=== PATIENT | female | born 1965 | race Caucasian/White ===

== ENCOUNTER 2017-04-23 16:22 | Emergency (ER) | payer OTHER ==
--- NOTE | 2017-04-23 17:27 | ED CLINICAL REPORT ---
Clinical Report - Physicians/Mid Levels [facility] [address] [place] [address] 04/23/2017 16:32 Patient: DIAZ SAM Time Seen: 16:51; initial patient contact, initial documentation, patient care assumed. Arrived- By private vehicle. Historian- patient. HISTORY OF PRESENT ILLNESS Chief Complaint: HEADACHE and MIGRAINE HEADACHE. Is still present. This started today. It was abrupt in onset and has been constant. It is described as similar to previous headaches and "pain". Located in the region of the left eye. No neck pain. Not located in the facial region. At its maximum, severity described as severe. When seen in the E.D., severity described as severe. The patient has had photophobia and nausea. She has had mild vomiting (x4 episodes). No bilious emesis, feculent emesis, blood-tinged emesis, coffee-grounds emesis or frankly bloody emesis. No unusually dark emesis. No preceding symptoms, blurred vision, numbness or weakness. No recent travel. Similar symptoms previously: Chronically, as bad. ( last headache was about a year ago). Recent medical care: Not recently seen/assessed. REVIEW OF SYSTEMS No fever, sinus pressure, ear pain, sore throat or head injury. No chest pain, difficulty breathing or abdominal pain. All systems otherwise negative, except as recorded above. PAST HISTORY See nurses notes. PROBLEMS: Migraine Headache. CVA - Cerebrovascular Accident. Meningitis. Hypercholesterolemia. Hypertension. Diabetes Mellitus Type 2. Hepatitis. --16:44 Florence Rainey R.N. ADDITIONAL SURGERIES: Appendectomy. Cardiac ablation. Knee Surgery. Neck Surgery. Tubal Ligation. --16:44 Florence Rainey R.N. SOCIAL HISTORY Light tobacco smoker. Occasional alcohol use. History of drug use: marijuana. No recent travel. Is a local resident. FAMILY HISTORY Negative. ADDITIONAL NOTES The nursing notes have been reviewed with agreement regarding the chief complaint, HPI, ROS, PMH and patient medications and allergies. PHYSICAL EXAM Vital Signs: 04/23/2017 16:40 BP: 153/70. HR: 58. RR: 18. O2 saturation: 99%. Temp: 98.2 F. Pain level now: 06/22. Have been reviewed as abnormal and appear to be correct. Blood pressure normal. Bradycardic. Respiratory rate normal. Temperature normal. Oxygen saturation normal. Appearance: Alert. No acute distress. Eyes: Pupils equal, round and reactive to light. Eyes normal inspection. ENT: Ears normal. Nose normal. Pharynx normal. Neck: Normal inspection. Neck supple. CVS: Normal heart rate and rhythm. Heart sounds normal. Pulses normal. Respiratory: No respiratory distress. Breath sounds normal. Back: Normal inspection. Skin: Skin warm and dry. Normal skin color. No rash. Normal skin turgor. Extremities: Extremities exhibit normal ROM. No lower extremity edema. Neuro: Oriented X 3. Alert. Mood/affect normal. Speech normal. Cranial nerves normal (as tested). No cerebellar findings. No motor deficit. No sensory deficit. PROGRESS AND PROCEDURES Patient counseled in person regarding the patient's stable condition and diagnosis. Differential Diagnosis: I considered migraine, cluster headache, ischemic stroke, subarachnoid hemorrhage, intracranial bleed, vascular malformation, cerebral aneurysm, vascular dissection, vasculitis, temporal arteritis, brain abscess, viral syndrome, analgesic abuse, hypoglycemia and trigeminal neuralgia as a possible cause of headache in this patient. This is a partial list of diagnoses considered. Above considerations are based on history and physical exam. Differential diagnosis was discussed with patient. Disposition: Discharged home in good and improved condition (17:27). Condition: good and stable. CLINICAL IMPRESSION Chronic, poorly controlled headache. INSTRUCTIONS Warnings: GENERAL WARNINGS: Return or contact your physician immediately if your condition worsens or changes unexpectedly, if not improving as expected, or if other problems arise. SPECIFICALLY, return if you develop fever, vomiting, numbness, weakness, difficulty thinking, visual disturbances, fainting or extreme fatigue. Prescription Medications: Zofran 4 mg: Take 1 orally every six hours as needed for nausea/vomiting. Dispense ten (10). No refills. Substitution is permissible. Oxycodone 5 mg tablets: take 1 orally every 6 hours as needed for pain. Dispense fifteen (15). No refills. Follow-up: Follow up with your doctor in about three days even if well. Call for an appointment. Summary of care provided to patient. Understanding of the discharge instructions verbalized by patient. Follow-up with: Benita Gomez MD, Neurology, , [address], , [place], [address]; Thomas Nelson MD, Neurology, , [address], , [place], [address]; Krunal Landry MD, Internal Medicine, , [facility], [address] [place] [address]; Angel Julian MD, Internal Medicine, , [facility], [address] [place] [address]; Jose Sandoval MD, Internal Medicine, , [address] [place] [address]; Ko Taylor MD, Internal Medicine, , [facility], [address] [place] [address] Follow up in about one week as needed. Call for an appointment. (Electronically signed by Jennifer John A.R.N.P. 04/23/2017 20:38)
--- NOTE | 2017-04-23 17:27 | ED NURSING NOTES ---
Clinical Report - Nurses [facility] [address] [place] [address] 04/23/2017 16:32 Patient: DIAZ SAM TRIAGE Triage time 1640. Acuity: LEVEL 4. Chief Complaint: MIGRAINE HEADACHE and (behind left eye). 16:40. ANA COMA SCORE: Ana Coma Scale: 15- eyes open spontaneously (4); best verbal response- oriented x 4 (5); best motor response- obeys commands (6). --16:48 Florence Rainey R.N. 16:40 04/23/17. BP: 153/70. HR: 58. RR: 18. O2 saturation: 99%. Temp: 98.2 F. Pain level now: 06/22. --16:48 Florence Rainey R.N. Weight: 72.5 kg stated. Height/Length: 60 inches Per Patient. BMI: 31.2. --16:47 Florence Rainey R.N. Medications Lantus Subcutaneous 38 units, at bedtime. NovoLOG Subcutaneous, before meals (2-10 units). --16:45 Florence Rainey R.N. Atenolol Oral (Tablet 50 mg) 1 tablet, daily. --16:46 Florence Rainey R.N. Motrin 800mg prn last dose 12:30. --16:46 Florence Rainey R.N. ASA 325mg 1 daily am. --16:48 Florence Rainey R.N. Allergies Imitrex.(vomiting) Mirapex. PCN.(Anaphylaxis) Reglan.(rash) Toradol.(itching, vomiting) Tylenol/Codeine.(vomiting) Ultram.(rash) Vicodin. (pt reports she has hep c and does not take vicodin often) Zomig.(vomiting) --16:45 Florence Rainey R.N. History Arrived by private vehicle. Historian: patient. Accompanied by friend. No primary care physician. This started today. She has had nausea and vomiting. SOCIAL HX: Light tobacco smoker (cigarette)- less than 1/2 a pack per day. Occasional alcohol use. History of drug use: marijuana. --16:48 Florence Rainey R.N. PROBLEMS: Migraine Headache. CVA - Cerebrovascular Accident. Meningitis. Hypercholesterolemia. Hypertension. Diabetes Mellitus Type 2. Hepatitis. --16:44 Florence Rainey R.N. ADDITIONAL SURGERIES: Appendectomy. Cardiac ablation. Knee Surgery. Neck Surgery. Tubal Ligation. --16:44 Florence Rainey R.N. Interventions ID band on patient. To treatment room. --16:48 Florence Rainey R.N. PHYSICAL ASSESSMENT 16:40. Ambulatory to room. Patient gowned. GENERAL / NEURO / PSYCH: Alert. Oriented X 4. Appears in no acute distress. Appears in pain. Speech within normal limits. HEENT: No facial asymmetry noted. RESPIRATORY: Respirations not labored. CVS: Capillary refill less than 2 seconds. GI / : Abdomen soft. SKIN: Skin is warm and dry. --16:49 Florence Rainey R.N. NURSING PROGRESS NOTES 16:40. Patient gowned. Head of bed elevated. Reassurance given. Lights dimmed. Patient identifiers checked. Call light placed in reach. Side rails up. Bed placed in lowest position. Patient ready for evaluation- chart flagged. --16:49 Florence Rainey R.N. 17:28 04/23/2017 Zofran ODT (Ondansetron) PO Oral Disintegrating Tablets 4 mg given. Allergies verified and confirmed 5 rights. --17:59 Florence Rainey R.N. 17:28 pt given ODT meds for nausea. --18:01 Florence Rainey R.N. DISPOSITION / DISCHARGE 17:35. Condition at departure: unchanged and stable. No learning barriers present. Discharge instructions provided and reviewed with the patient. Reviewed medication(s) (zofran, oxycodone). Reviewed referrals (PCP, and neruologist). Patient verbalized understanding. Written instructions provided in French. The patient was discharged home and accompanied by fiber machine tender. She left the Emergency Department ambulatory and via private vehicle. Senior Case Manager driving. --18:01 Florence Rainey R.N. 17:35 04/23/17. BP: deferred. HR: deferred. RR: deferred. O2 saturation: deferred. Temp: deferred. Pain level now: 06/22. --18:01 Florence Rainey R.N. Locked/Released at 04/23/2017 18:02 by Florence Rainey R.N.
--- NOTE | 2017-04-23 17:27 | ED NURSING NOTES ---
Clinical Report - Nurses [facility] [address] [place] [address] 04/23/2017 16:32 Patient: DIAZ SAM TRIAGE Triage time 1640. Acuity: LEVEL 4. Chief Complaint: MIGRAINE HEADACHE and (behind left eye). 16:40. ANA COMA SCORE: Ana Coma Scale: 15- eyes open spontaneously (4); best verbal response- oriented x 4 (5); best motor response- obeys commands (6). --16:48 Florence Rainey R.N. 16:40 04/23/17. BP: 153/70. HR: 58. RR: 18. O2 saturation: 99%. Temp: 98.2 F. Pain level now: 06/22. --16:48 Florence Rainey R.N. Weight: 72.5 kg stated. Height/Length: 60 inches Per Patient. BMI: 31.2. --16:47 Florence Rainey R.N. Medications Lantus Subcutaneous 38 units, at bedtime. NovoLOG Subcutaneous, before meals (2-10 units). --16:45 Florence Rainey R.N. Atenolol Oral (Tablet 50 mg) 1 tablet, daily. --16:46 Florence Rainey R.N. Motrin 800mg prn last dose 12:30. --16:46 Florence Rainey R.N. ASA 325mg 1 daily am. --16:48 Florence Rainey R.N. Allergies Imitrex.(vomiting) Mirapex. PCN.(Anaphylaxis) Reglan.(rash) Toradol.(itching, vomiting) Tylenol/Codeine.(vomiting) Ultram.(rash) Vicodin. (pt reports she has hep c and does not take vicodin often) Zomig.(vomiting) --16:45 Florence Rainey R.N. History Arrived by private vehicle. Historian: patient. Accompanied by friend. No primary care physician. This started today. She has had nausea and vomiting. SOCIAL HX: Light tobacco smoker (cigarette)- less than 1/2 a pack per day. Occasional alcohol use. History of drug use: marijuana. --16:48 Florence Rainey R.N. PROBLEMS: Migraine Headache. CVA - Cerebrovascular Accident. Meningitis. Hypercholesterolemia. Hypertension. Diabetes Mellitus Type 2. Hepatitis. --16:44 Florence Rainey R.N. ADDITIONAL SURGERIES: Appendectomy. Cardiac ablation. Knee Surgery. Neck Surgery. Tubal Ligation. --16:44 Florence Rainey R.N. Interventions ID band on patient. To treatment room. --16:48 Florence Rainey R.N. PHYSICAL ASSESSMENT 16:40. Ambulatory to room. Patient gowned. GENERAL / NEURO / PSYCH: Alert. Oriented X 4. Appears in no acute distress. Appears in pain. Speech within normal limits. HEENT: No facial asymmetry noted. RESPIRATORY: Respirations not labored. CVS: Capillary refill less than 2 seconds. GI / : Abdomen soft. SKIN: Skin is warm and dry. --16:49 Florence Rainey R.N. NURSING PROGRESS NOTES 16:40. Patient gowned. Head of bed elevated. Reassurance given. Lights dimmed. Patient identifiers checked. Call light placed in reach. Side rails up. Bed placed in lowest position. Patient ready for evaluation- chart flagged. --16:49 Florence Rainey R.N. 17:28 04/23/2017 Zofran ODT (Ondansetron) PO Oral Disintegrating Tablets 4 mg given. Allergies verified and confirmed 5 rights. --17:59 Florence Rainey R.N. 17:28 pt given ODT meds for nausea. --18:01 Florence Rainey R.N. DISPOSITION / DISCHARGE 17:35. Condition at departure: unchanged and stable. No learning barriers present. Discharge instructions provided and reviewed with the patient. Reviewed medication(s) (zofran, oxycodone). Reviewed referrals (PCP, and neruologist). Patient verbalized understanding. Written instructions provided in [place]. The patient was discharged home and accompanied by general road supervisor. She left the Emergency Department ambulatory and via private vehicle. Manager Sound driving. --18:01 Florence Rainey R.N. 17:35 04/23/17. BP: deferred. HR: deferred. RR: deferred. O2 saturation: deferred. Temp: deferred. Pain level now: 06/22. --18:01 Florence Rainey R.N. Locked/Released at 04/23/2017 18:02 by Florence Rainey R.N.
--- NOTE | 2017-04-23 17:27 | ED CLINICAL REPORT ---
Clinical Report - Physicians/Mid Levels [facility] [address] [place] [address] 04/23/2017 16:32 Patient: DIAZ SAM Time Seen: 16:51; initial patient contact, initial documentation, patient care assumed. Arrived- By private vehicle. Historian- patient. HISTORY OF PRESENT ILLNESS Chief Complaint: HEADACHE and MIGRAINE HEADACHE. Is still present. This started today. It was abrupt in onset and has been constant. It is described as similar to previous headaches and "pain". Located in the region of the left eye. No neck pain. Not located in the facial region. At its maximum, severity described as severe. When seen in the E.D., severity described as severe. The patient has had photophobia and nausea. She has had mild vomiting (x4 episodes). No bilious emesis, feculent emesis, blood-tinged emesis, coffee-grounds emesis or frankly bloody emesis. No unusually dark emesis. No preceding symptoms, blurred vision, numbness or weakness. No recent travel. Similar symptoms previously: Chronically, as bad. ( last headache was about a year ago). Recent medical care: Not recently seen/assessed. REVIEW OF SYSTEMS No fever, sinus pressure, ear pain, sore throat or head injury. No chest pain, difficulty breathing or abdominal pain. All systems otherwise negative, except as recorded above. PAST HISTORY See nurses notes. PROBLEMS: Migraine Headache. CVA - Cerebrovascular Accident. Meningitis. Hypercholesterolemia. Hypertension. Diabetes Mellitus Type 2. Hepatitis. --16:44 Florence Rainey R.N. ADDITIONAL SURGERIES: Appendectomy. Cardiac ablation. Knee Surgery. Neck Surgery. Tubal Ligation. --16:44 Flroence Rainey R.N. SOCIAL HISTORY Light tobacco smoker. Occasional alcohol use. History of drug use: marijuana. No recent travel. Is a local resident. FAMILY HISTORY Negative. ADDITIONAL NOTES The nursing notes have been reviewed with agreement regarding the chief complaint, HPI, ROS, PMH and patient medications and allergies. PHYSICAL EXAM Vital Signs: 04/23/2017 16:40 BP: 153/70. HR: 58. RR: 18. O2 saturation: 99%. Temp: 98.2 F. Pain level now: 06/22. Have been reviewed as abnormal and appear to be correct. Blood pressure normal. Bradycardic. Respiratory rate normal. Temperature normal. Oxygen saturation normal. Appearance: Alert. No acute distress. Eyes: Pupils equal, round and reactive to light. Eyes normal inspection. ENT: Ears normal. Nose normal. Pharynx normal. Neck: Normal inspection. Neck supple. CVS: Normal heart rate and rhythm. Heart sounds normal. Pulses normal. Respiratory: No respiratory distress. Breath sounds normal. Back: Normal inspection. Skin: Skin warm and dry. Normal skin color. No rash. Normal skin turgor. Extremities: Extremities exhibit normal ROM. No lower extremity edema. Neuro: Oriented X 3. Alert. Mood/affect normal. Speech normal. Cranial nerves normal (as tested). No cerebellar findings. No motor deficit. No sensory deficit. PROGRESS AND PROCEDURES Patient counseled in person regarding the patient's stable condition and diagnosis. Differential Diagnosis: I considered migraine, cluster headache, ischemic stroke, subarachnoid hemorrhage, intracranial bleed, vascular malformation, cerebral aneurysm, vascular dissection, vasculitis, temporal arteritis, brain abscess, viral syndrome, analgesic abuse, hypoglycemia and trigeminal neuralgia as a possible cause of headache in this patient. This is a partial list of diagnoses considered. Above considerations are based on history and physical exam. Differential diagnosis was discussed with patient. Disposition: Discharged home in good and improved condition (17:27). Condition: good and stable. CLINICAL IMPRESSION Chronic, poorly controlled headache. INSTRUCTIONS Warnings: GENERAL WARNINGS: Return or contact your physician immediately if your condition worsens or changes unexpectedly, if not improving as expected, or if other problems arise. SPECIFICALLY, return if you develop fever, vomiting, numbness, weakness, difficulty thinking, visual disturbances, fainting or extreme fatigue. Prescription Medications: Zofran 4 mg: Take 1 orally every six hours as needed for nausea/vomiting. Dispense ten (10). No refills. Substitution is permissible. Oxycodone 5 mg tablets: take 1 orally every 6 hours as needed for pain. Dispense fifteen (15). No refills. Follow-up: Follow up with your doctor in about three days even if well. Call for an appointment. Summary of care provided to patient. Understanding of the discharge instructions verbalized by patient. Follow-up with: Benita Gomez MD, Neurology, , [address], , [place], [address]; Thomas Nelson MD, Neurology, , [address], , [place], [address]; Krunal Landry MD, Internal Medicine, , [facility], [address] [place] [address]; Angel Julian MD, Internal Medicine, , [facility], [address] [place] [address]; Jose Sandoval MD, Internal Medicine, , [address] [place] [address]; Ko Taylor MD, Internal Medicine, , [facility], [address] [place] [address] Follow up in about one week as needed. Call for an appointment. (Electronically signed by Jennifer John A.R.N.P. 04/23/2017 20:38)
--- NOTE | 2017-04-23 20:38 | ED ORDER SUMMARY ---
..... Patient: DIAZ SAM OrderSheet [facility] VisitID: [id number] [address] [place] [address] 51y, F Registration Date/Time: 04/23/2017 ORDER SHEET Weight: 72.5 kg (stated) Allergies: Imitrex, Mirapex, PCN, Reglan, Toradol, Tylenol/Codeine, Ultram, Vicodin, Zomig GENERAL ORDERS: MEDICATION ORDERS: Zofran ODT PO 4 mg (NOW) (17:58 04/23/2017 DDean R.N. per protocol) (17:59 DDean R.N.) IV FLUIDS: ORDER SHEET NOTES: [Electronically signed by Florence Rainey R.N. (18:02 04/23/2017)] [Electronically signed by Jennifer John (20:38 04/23/2017)] [Electronically locked/signed by Florence Rainey R.N. (18:02 04/23/2017)]
--- NOTE | 2017-04-23 20:38 | ED MED RECONCILIATION SUMMARY ---
Patient: DIAZ SAM Medication Reconciliation Report Located Within [facility] VisitID: [id number] [address] [place] [address] 51y, F Registration Date/Time: 04/23/2017 Weight: 72.5 kg Height/Length: 60 in. BMI: 31.2 ALLERGIES: Imitrex, Mirapex, PCN, Reglan, Toradol, Tylenol/Codeine, Ultram, Vicodin, Zomig The patient's Home Medications are listed below: THE FOLLOWING MEDICATIONS NEED TO BE RECONCILED: ASA 325mg 1 daily am Atenolol Oral (50 mg) 1 tablet, daily Lantus Subcutaneous 38 units, at bedtime Motrin 800mg prn last dose 12:30 NovoLOG Subcutaneous, before meals, 2-10 units The source(s) of the original Home Medication information: Not obtained. The following Medications were given to the patient in the Emergency Department: Zofran ODT [PO] PO 4 mg, administered: 04/23/2017 5:28:00 PM The following Medications were prescribed to the patient: Zofran 4 mg: Take 1 orally every six hours as needed for nausea/vomiting. Dispense ten (10). No refills. Substitution is permissible. -- Jennifer John, A.R.N.P. Oxycodone 5 mg tablets: take 1 orally every 6 hours as needed for pain. Dispense fifteen (15). No refills. -- Jennifer John A.R.N.P.
--- NOTE | 2017-04-23 20:38 | ED DISCHARGE INSTRUCTIONS ---
Patient: DIAZ SAM General Instructions [facility] VisitID: [id number] [address] [place] [address] 51y, F Registration Date/Time: 04/23/2017 Chronic, poorly controlled headache. INSTRUCTIONS Warnings: GENERAL WARNINGS: Return or contact your physician immediately if your condition worsens or changes unexpectedly, if not improving as expected, or if other problems arise. SPECIFICALLY, return if you develop fever, vomiting, numbness, weakness, difficulty thinking, visual disturbances, fainting or extreme fatigue. Prescription Medications: Zofran 4 mg: Take 1 orally every six hours as needed for nausea/vomiting. Dispense ten (10). No refills. Substitution is permissible. Oxycodone 5 mg tablets: take 1 orally every 6 hours as needed for pain. Dispense fifteen (15). No refills. Follow-up: Follow up with your doctor in about three days even if well. Call for an appointment. Summary of care provided to patient. Understanding of the discharge instructions verbalized by patient. Follow-up with: Benita Gomez MD, Neurology, , [address], , [place], [address]; Thomas Nelson MD, Neurology, , [address], , [place], [address]; Krunal Landry MD, Internal Medicine, , [facility], [address] [place] [address]; Angel Julian MD, Internal Medicine, , [facility], [address] [place] [address]; Jose Sandoval MD, Internal Medicine, , [address] [place] [address]; Ko Taylor MD, Internal Medicine, , [place] [address] Follow up in about one week as needed. Call for an appointment. ADDITIONAL INFORMATION Migraine Headache Migraine headaches are related to changes in blood flow to the brain. This causes throbbing or constant pain on one or both sides of the head. The pain may last from a few hours to several days. There is usually nausea, vomiting, sensitivity to light and sound, and blurred vision. A migraine attack may be triggered by emotional stress, hormone changes during the menstrual cycle, oral contraceptives, alcohol use, certain foods containing tyramine, eye strain, weather changes, missing meals, or too little or too much sleep. Home Care For This Headache: 1) If you were given pain medicine for this headache, do not drive yourself home . Arrange for a ride, instead. When you get home, try to sleep. You should feel much better when you wake up. 2) Migraine headaches may improve with an ice pack on the forehead or at the base of the skull. Heat to the back of your neck may relieve any neck spasm. 3) Drink only clear liquids or eat a very light diet to avoid nausea/vomiting until symptoms improve. Preventing Future Headaches: 1) Pay attention to those factors that seem to trigger your headache. Try to avoid them when you can. If you have frequent headaches, it is useful to keep a diary of what you were doing, feeling or eating in the hours before each attack. Show this to your doctor to help find the cause of your headaches. a) If you feel that stress is a factor in your headaches, look at the sources of stress in your life. Find ways to release the build-up of those stresses by using regular exercise, relaxation methods (yoga, meditation), bio-feedback or simply taking time-out for yourself. For more information about this, consult your doctor or go to a local bookstore and review books and tapes on this subject. b) Tyramine is a substance present in the following foods : chocolate, yogurt, all cheeses except cottage cheese and cream cheese. smoked or pickled fish and meat (including martinez, caviar, bologna, pepperoni, salami), liver, avocados, bananas, figs, raisins, and red wine. Be aware that these foods may trigger a migraine in some persons. Try taking these foods out of your diet for 1-2 months to see if this reduces headache frequency. Treating Future Attacks: 1) At the first sign of a headache, take time out if possible. Find a quiet, dark, comfortable place to sit or lie down. Let yourself relax or sleep. 2) An ice pack on the forehead or area of greatest pain may help. If you are having muscle spasm and tightness of the neck, a heating pad and massage to this area may be helpful. 3) If you have been prescribed a medicine to stop a migraine headache, use this at the very first warning sign of the headache (aura or initial pain) for best results. Follow Up with your doctor if the headache is not better within the next 24 hours. If you have frequent headaches you should discuss a treatment plan with your primary care doctor. Ask if you can have medicine to take at home the next time you get a bad headache. Poorly controlled chronic headaches may require a referral to a neurologist (headache specialist). Get Prompt Medical Attention if any of the following occur: Your head pain gets worse, or does not improve within 24 hours Repeated vomiting (cant keep liquids down) Sinus or ear or throat pain (not already reported) Fever of 100.4 F (38 C) or higher, or as directed by your healthcare provider Stiff neck Extreme drowsiness, confusion or fainting Dizziness, vertigo (dizziness with spinning sensation) Weakness of an arm or leg or one side of the face Difficulty with speech or vision Ondansetron Hydrochloride Oral tablet What is this medicine? ONDANSETRON (on MADELINE se barney) is used to treat nausea and vomiting caused by chemotherapy. It is also used to prevent or treat nausea and vomiting after surgery. How should I use this medicine? Take this medicine by mouth with a glass of water. Follow the directions on your prescription label. Take your doses at regular intervals. Do not take your medicine more often than directed. Talk to your curbing stonecutter regarding the use of this medicine in children. Special care may be needed. What side effects may I notice from receiving this medicine? Side effects that you should report to your doctor or health foster care therapist as soon as possible: allergic reactions like skin rash, itching or hives, swelling of the face, lips or tongue breathing problems dizziness fast or irregular heartbeat feeling faint or lightheaded, falls fever and chills swelling of the hands or feet tightness in the chest Side effects that usually do not require medical attention (report to your doctor or health foster care therapist if they continue or are bothersome): constipation or diarrhea headache What may interact with this medicine? Do not take this medicine with any of the following medications: -apomorphine -cisapride -dofetilide -dronedarone -pimozide -thioridazine -ziprasidone This medicine may also interact with the following medications: -carbamazepine -phenytoin -rifampicin -tramadol -other medicines that prolong the QT interval (cause an abnormal heart rhythm) What if I miss a dose? If you miss a dose, take it as soon as you can. If it is almost time for your next dose, take only that dose. Do not take double or extra doses. Where should I keep my medicine? Keep out of the reach of children. Store between 2 and 30 degrees C (36 and 86 degrees F). Throw away any unused medicine after the expiration date. What should I tell my health care provider before I take this medicine? They need to know if you have any of these conditions: heart disease history of irregular heartbeat liver disease low levels of magnesium or potassium in the blood an unusual or allergic reaction to ondansetron, granisetron, other medicines, foods, dyes, or preservatives or trying to get breast-feeding What should I watch for while using this medicine? Check with your doctor or health foster care therapist right away if you have any sign of an allergic reaction. Oxycodone Hydrochloride Oral tablet, extended-release What is this medicine? OXYCODONE (ox i KOE done) is a pain reliever. It is used to treat constant pain that lasts for more than a few days. How should I use this medicine? Take this medicine by mouth with a full glass of water. Follow the directions on the prescription label. Do not cut, crush or chew this medicine. Swallow only one tablet at a time. Do not wet, soak, or lick the tablet before you take it. You can take it with or without food. If it upsets your stomach, take it with food. Take your medicine at regular intervals. Do not take it more often than directed. Do not stop taking except on your doctor's advice. A special MedGuide will be given to you by the pharmacist with each prescription and refill. Be sure to read this information carefully each time. Talk to your curbing stonecutter regarding the use of this medicine in children. Special care may be needed. What side effects may I notice from receiving this medicine? Side effects that you should report to your doctor or health foster care therapist as soon as possible: allergic reactions like skin rash, itching or hives, swelling of the face, lips, or tongue breathing problems confusion feeling faint or lightheaded, falls trouble passing urine or change in the amount of urine trouble swallowing unusually weak or tired Side effects that usually do not require medical attention (report to your doctor or health foster care therapist if they continue or are bothersome): constipation dizziness dry mouth itching nausea, vomiting stomach pain tiredness upset stomach What may interact with this medicine? alcohol antihistamines carbamazepine certain medicines used for nausea like chlorpromazine, droperidol erythromycin ketoconazole medicines for depression, anxiety, or psychotic disturbances medicines for sleep muscle relaxants naloxone naltrexone narcotic medicines (opiates) for pain nilotinib phenobarbital phenytoin rifampin ritonavir voriconazole What if I miss a dose? If you miss a dose, take it as soon as you can. If it is almost time for your next dose, take only that dose. Do not take double or extra doses. Where should I keep my medicine? Keep out of the reach of children. This medicine can be abused. Keep your medicine in a safe place to protect it from theft. Do not share this medicine with anyone. Selling or giving away this medicine is dangerous and against the law. Store at room temperature between 15 and 30 degrees C (59 and 86 degrees F). Protect from light. Keep container tightly closed. Discard unused medicine and used packaging carefully. Pets and children can be harmed if they find used or lost packages. Flush any unused medicines down the toilet. Do not use the medicine after the expiration date. Follow the directions in the MedGuide. What should I tell my health care provider before I take this medicine? They need to know if you have any of these conditions: [place]'s disease brain tumor drug abuse or addiction gallbladder disease head injury heart disease if you frequently drink alcohol-containing drinks kidney disease or problems going to the bathroom liver disease lung disease, asthma, or breathing problems mental problems pancreatic disease seizures stomach or intestine problems thyroid disease trouble swallowing an unusual or allergic reaction to oxycodone, codeine, hydrocodone, morphine, other medicines, foods, dyes, or preservatives or trying to get breast-feeding What should I watch for while using this medicine? Tell your doctor or health foster care therapist if your pain does not go away, if it gets worse, or if you have new or a different type of pain. You may develop tolerance to the medicine. Tolerance means that you will need a higher dose of the medication for pain relief. Tolerance is normal and is expected if you take this medicine for a long time. Do not suddenly stop taking your medicine because you may develop a severe reaction. Your body becomes used to the medicine. This does NOT mean you are addicted. Addiction is a behavior related to getting and using a drug for a non-medical reason. If you have pain, you have a medical reason to take pain medicine. Your doctor will tell you how much medicine to take. If your doctor wants you to stop the medicine, the dose will be slowly lowered over time to avoid any side effects. You may get drowsy or dizzy when you first start taking the medicine or change doses. Do not drive, use machinery, or do anything that may be dangerous until you know how the medicine affects you. Stand or sit up slowly. There are different types of narcotic medicines (opiates) for pain. If you take more than one type at the same time, you may have more side effects. Give your health care provider a list of all medicines you use. Your doctor will tell you how much medicine to take. Do not take more medicine than directed. Call emergency for help if you have problems breathing. This medicine will cause constipation. Try to have a bowel movement at least every 2 to 3 days. If you do not have a bowel movement for 3 days, call your doctor or health foster care therapist. You may see empty tablets in your stool. The tablet shell for some brands of this medicine does not dissolve. This is normal. Your mouth may get dry. Drinking water, chewing sugarless gum, or sucking on hard candy may help. See your dentist every 6 months. You have been given the following additional information: Headache, Migraine (Classical) Ondansetron Hydrochloride Oral tablet Oxycodone Hydrochloride Oral tablet, extended-release (Electronically signed by Jennifer John A.R.N.P. 04/23/2017 20:38)
--- NOTE | 2017-04-23 20:38 | ED DISCHARGE INSTRUCTIONS ---
Patient: DIAZ SAM General Instructions [facility] VisitID: [id number] [address] [place] [address] 51y, F Registration Date/Time: 04/23/2017 Chronic, poorly controlled headache. INSTRUCTIONS Warnings: GENERAL WARNINGS: Return or contact your physician immediately if your condition worsens or changes unexpectedly, if not improving as expected, or if other problems arise. SPECIFICALLY, return if you develop fever, vomiting, numbness, weakness, difficulty thinking, visual disturbances, fainting or extreme fatigue. Prescription Medications: Zofran 4 mg: Take 1 orally every six hours as needed for nausea/vomiting. Dispense ten (10). No refills. Substitution is permissible. Oxycodone 5 mg tablets: take 1 orally every 6 hours as needed for pain. Dispense fifteen (15). No refills. Follow-up: Follow up with your doctor in about three days even if well. Call for an appointment. Summary of care provided to patient. Understanding of the discharge instructions verbalized by patient. Follow-up with: Benita Gomez MD, Neurology, , [address], , [place], [address]; Thomas Nelson MD, Neurology, , [address], , [place], [address]; Krunal Landry MD, Internal Medicine, , Located Within [facility], [address] [place] [address]; Angel Julian MD, Internal Medicine, , [facility], [address] [place] [address]; Jose Sandoval MD, Internal Medicine, , [address] [place] [address]; Ko Taylor MD, Internal Medicine, , [place] [address] Follow up in about one week as needed. Call for an appointment. ADDITIONAL INFORMATION Migraine Headache Migraine headaches are related to changes in blood flow to the brain. This causes throbbing or constant pain on one or both sides of the head. The pain may last from a few hours to several days. There is usually nausea, vomiting, sensitivity to light and sound, and blurred vision. A migraine attack may be triggered by emotional stress, hormone changes during the menstrual cycle, oral contraceptives, alcohol use, certain foods containing tyramine, eye strain, weather changes, missing meals, or too little or too much sleep. Home Care For This Headache: 1) If you were given pain medicine for this headache, do not drive yourself home . Arrange for a ride, instead. When you get home, try to sleep. You should feel much better when you wake up. 2) Migraine headaches may improve with an ice pack on the forehead or at the base of the skull. Heat to the back of your neck may relieve any neck spasm. 3) Drink only clear liquids or eat a very light diet to avoid nausea/vomiting until symptoms improve. Preventing Future Headaches: 1) Pay attention to those factors that seem to trigger your headache. Try to avoid them when you can. If you have frequent headaches, it is useful to keep a diary of what you were doing, feeling or eating in the hours before each attack. Show this to your doctor to help find the cause of your headaches. a) If you feel that stress is a factor in your headaches, look at the sources of stress in your life. Find ways to release the build-up of those stresses by using regular exercise, relaxation methods (yoga, meditation), bio-feedback or simply taking time-out for yourself. For more information about this, consult your doctor or go to a local bookstore and review books and tapes on this subject. b) Tyramine is a substance present in the following foods : chocolate, yogurt, all cheeses except cottage cheese and cream cheese. smoked or pickled fish and meat (including martinez, caviar, bologna, pepperoni, salami), liver, avocados, bananas, figs, raisins, and red wine. Be aware that these foods may trigger a migraine in some persons. Try taking these foods out of your diet for 1-2 months to see if this reduces headache frequency. Treating Future Attacks: 1) At the first sign of a headache, take time out if possible. Find a quiet, dark, comfortable place to sit or lie down. Let yourself relax or sleep. 2) An ice pack on the forehead or area of greatest pain may help. If you are having muscle spasm and tightness of the neck, a heating pad and massage to this area may be helpful. 3) If you have been prescribed a medicine to stop a migraine headache, use this at the very first warning sign of the headache (aura or initial pain) for best results. Follow Up with your doctor if the headache is not better within the next 24 hours. If you have frequent headaches you should discuss a treatment plan with your primary care doctor. Ask if you can have medicine to take at home the next time you get a bad headache. Poorly controlled chronic headaches may require a referral to a neurologist (headache specialist). Get Prompt Medical Attention if any of the following occur: Your head pain gets worse, or does not improve within 24 hours Repeated vomiting (cant keep liquids down) Sinus or ear or throat pain (not already reported) Fever of 100.4 F (38 C) or higher, or as directed by your healthcare provider Stiff neck Extreme drowsiness, confusion or fainting Dizziness, vertigo (dizziness with spinning sensation) Weakness of an arm or leg or one side of the face Difficulty with speech or vision Ondansetron Hydrochloride Oral tablet What is this medicine? ONDANSETRON (on MADELINE se barney) is used to treat nausea and vomiting caused by chemotherapy. It is also used to prevent or treat nausea and vomiting after surgery. How should I use this medicine? Take this medicine by mouth with a glass of water. Follow the directions on your prescription label. Take your doses at regular intervals. Do not take your medicine more often than directed. Talk to your [facility] regarding the use of this medicine in children. Special care may be needed. What side effects may I notice from receiving this medicine? Side effects that you should report to your doctor or health intensive care anaesthetist as soon as possible: allergic reactions like skin rash, itching or hives, swelling of the face, lips or tongue breathing problems dizziness fast or irregular heartbeat feeling faint or lightheaded, falls fever and chills swelling of the hands or feet tightness in the chest Side effects that usually do not require medical attention (report to your doctor or health intensive care anaesthetist if they continue or are bothersome): constipation or diarrhea headache What may interact with this medicine? Do not take this medicine with any of the following medications: -apomorphine -cisapride -dofetilide -dronedarone -pimozide -thioridazine -ziprasidone This medicine may also interact with the following medications: -carbamazepine -phenytoin -rifampicin -tramadol -other medicines that prolong the QT interval (cause an abnormal heart rhythm) What if I miss a dose? If you miss a dose, take it as soon as you can. If it is almost time for your next dose, take only that dose. Do not take double or extra doses. Where should I keep my medicine? Keep out of the reach of children. Store between 2 and 30 degrees C (36 and 86 degrees F). Throw away any unused medicine after the expiration date. What should I tell my health care provider before I take this medicine? They need to know if you have any of these conditions: heart disease history of irregular heartbeat liver disease low levels of magnesium or potassium in the blood an unusual or allergic reaction to ondansetron, granisetron, other medicines, foods, dyes, or preservatives or trying to get breast-feeding What should I watch for while using this medicine? Check with your doctor or health intensive care anaesthetist right away if you have any sign of an allergic reaction. Oxycodone Hydrochloride Oral tablet, extended-release What is this medicine? OXYCODONE (ox i KOE done) is a pain reliever. It is used to treat constant pain that lasts for more than a few days. How should I use this medicine? Take this medicine by mouth with a full glass of water. Follow the directions on the prescription label. Do not cut, crush or chew this medicine. Swallow only one tablet at a time. Do not wet, soak, or lick the tablet before you take it. You can take it with or without food. If it upsets your stomach, take it with food. Take your medicine at regular intervals. Do not take it more often than directed. Do not stop taking except on your doctor's advice. A special MedGuide will be given to you by the pharmacist with each prescription and refill. Be sure to read this information carefully each time. Talk to your [facility] regarding the use of this medicine in children. Special care may be needed. What side effects may I notice from receiving this medicine? Side effects that you should report to your doctor or health intensive care anaesthetist as soon as possible: allergic reactions like skin rash, itching or hives, swelling of the face, lips, or tongue breathing problems confusion feeling faint or lightheaded, falls trouble passing urine or change in the amount of urine trouble swallowing unusually weak or tired Side effects that usually do not require medical attention (report to your doctor or health intensive care anaesthetist if they continue or are bothersome): constipation dizziness dry mouth itching nausea, vomiting stomach pain tiredness upset stomach What may interact with this medicine? alcohol antihistamines carbamazepine certain medicines used for nausea like chlorpromazine, droperidol erythromycin ketoconazole medicines for depression, anxiety, or psychotic disturbances medicines for sleep muscle relaxants naloxone naltrexone narcotic medicines (opiates) for pain nilotinib phenobarbital phenytoin rifampin ritonavir voriconazole What if I miss a dose? If you miss a dose, take it as soon as you can. If it is almost time for your next dose, take only that dose. Do not take double or extra doses. Where should I keep my medicine? Keep out of the reach of children. This medicine can be abused. Keep your medicine in a safe place to protect it from theft. Do not share this medicine with anyone. Selling or giving away this medicine is dangerous and against the law. Store at room temperature between 15 and 30 degrees C (59 and 86 degrees F). Protect from light. Keep container tightly closed. Discard unused medicine and used packaging carefully. Pets and children can be harmed if they find used or lost packages. Flush any unused medicines down the toilet. Do not use the medicine after the expiration date. Follow the directions in the MedGuide. What should I tell my health care provider before I take this medicine? They need to know if you have any of these conditions: Potomac's disease brain tumor drug abuse or addiction gallbladder disease head injury heart disease if you frequently drink alcohol-containing drinks kidney disease or problems going to the bathroom liver disease lung disease, asthma, or breathing problems mental problems pancreatic disease seizures stomach or intestine problems thyroid disease trouble swallowing an unusual or allergic reaction to oxycodone, codeine, hydrocodone, morphine, other medicines, foods, dyes, or preservatives or trying to get breast-feeding What should I watch for while using this medicine? Tell your doctor or health intensive care anaesthetist if your pain does not go away, if it gets worse, or if you have new or a different type of pain. You may develop tolerance to the medicine. Tolerance means that you will need a higher dose of the medication for pain relief. Tolerance is normal and is expected if you take this medicine for a long time. Do not suddenly stop taking your medicine because you may develop a severe reaction. Your body becomes used to the medicine. This does NOT mean you are addicted. Addiction is a behavior related to getting and using a drug for a non-medical reason. If you have pain, you have a medical reason to take pain medicine. Your doctor will tell you how much medicine to take. If your doctor wants you to stop the medicine, the dose will be slowly lowered over time to avoid any side effects. You may get drowsy or dizzy when you first start taking the medicine or change doses. Do not drive, use machinery, or do anything that may be dangerous until you know how the medicine affects you. Stand or sit up slowly. There are different types of narcotic medicines (opiates) for pain. If you take more than one type at the same time, you may have more side effects. Give your health care provider a list of all medicines you use. Your doctor will tell you how much medicine to take. Do not take more medicine than directed. Call emergency for help if you have problems breathing. This medicine will cause constipation. Try to have a bowel movement at least every 2 to 3 days. If you do not have a bowel movement for 3 days, call your doctor or health intensive care anaesthetist. You may see empty tablets in your stool. The tablet shell for some brands of this medicine does not dissolve. This is normal. Your mouth may get dry. Drinking water, chewing sugarless gum, or sucking on hard candy may help. See your dentist every 6 months. You have been given the following additional information: Headache, Migraine (Classical) Ondansetron Hydrochloride Oral tablet Oxycodone Hydrochloride Oral tablet, extended-release (Electronically signed by Jennifer John A.R.N.P. 04/23/2017 20:38)
--- NOTE | 2017-04-23 20:38 | ED ORDER SUMMARY ---
..... Patient: DIAZ SAM OrderSheet [facility] VisitID: [id number] [address] [place] [address] 51y, F Registration Date/Time: 04/23/2017 ORDER SHEET Weight: 72.5 kg (stated) Allergies: Imitrex, Mirapex, PCN, Reglan, Toradol, Tylenol/Codeine, Ultram, Vicodin, Zomig GENERAL ORDERS: MEDICATION ORDERS: Zofran ODT PO 4 mg (NOW) (17:58 04/23/2017 DDean R.N. per protocol) (17:59 DDean R.N.) IV FLUIDS: ORDER SHEET NOTES: [Electronically signed by Florence Rainey R.N. (18:02 04/23/2017)] [Electronically signed by Jennifer John (20:38 04/23/2017)] [Electronically locked/signed by Florence Rainey R.N. (18:02 04/23/2017)]
--- NOTE | 2017-04-23 20:38 | ED MED RECONCILIATION SUMMARY ---
Patient: DIAZ SAM Medication Reconciliation Report [facility] VisitID: [id number] [address] [place] [address] 51y, F Registration Date/Time: 04/23/2017 Weight: 72.5 kg Height/Length: 60 in. BMI: 31.2 ALLERGIES: Imitrex, Mirapex, PCN, Reglan, Toradol, Tylenol/Codeine, Ultram, Vicodin, Zomig The patient's Home Medications are listed below: THE FOLLOWING MEDICATIONS NEED TO BE RECONCILED: ASA 325mg 1 daily am Atenolol Oral (50 mg) 1 tablet, daily Lantus Subcutaneous 38 units, at bedtime Motrin 800mg prn last dose 12:30 NovoLOG Subcutaneous, before meals, 2-10 units The source(s) of the original Home Medication information: Not obtained. The following Medications were given to the patient in the Emergency Department: Zofran ODT [PO] PO 4 mg, administered: 04/23/2017 5:28:00 PM The following Medications were prescribed to the patient: Zofran 4 mg: Take 1 orally every six hours as needed for nausea/vomiting. Dispense ten (10). No refills. Substitution is permissible. -- Jennifer John, A.R.N.P. Oxycodone 5 mg tablets: take 1 orally every 6 hours as needed for pain. Dispense fifteen (15). No refills. -- Jennifer John A.R.N.P.
--- NOTE | 2017-04-23 20:38 | ED MAR SUMMARY ---
..... Medication Administration Record [facility] [address] [place] [address] Patient: DIZA SAM Visit ID: [id number] 51y, F Weight: 72.5 kg Height/Length: 60 in BMI: 31.2 ALLERGIES: Imitrex, Mirapex, PCN, Reglan, Toradol, Tylenol/Codeine, Ultram, Vicodin, Zomig Given 17:28 04/23/2017 Redd, Florence, RJerN. Medication Administered: ZOFRAN ODT [PO] (ONDANSETRON), Dose: 4 mg Oral Disintegrating Tablets PO. Medication Ordered: Zofran ODT PO 4 mg (NOW).
--- NOTE | 2017-04-23 20:38 | ED MAR SUMMARY ---
..... Medication Administration Record [facility] [address] [place] [address] Patient: DIAZ SAM Visit ID: [id number] 51y, F Weight: 72.5 kg Height/Length: 60 in BMI: 31.2 ALLERGIES: Imitrex, Mirapex, PCN, Reglan, Toradol, Tylenol/Codeine, Ultram, Vicodin, Zomig Given 17:28 04/23/2017 Redd, Florence, RJerN. Medication Administered: ZOFRAN ODT [PO] (ONDANSETRON), Dose: 4 mg Oral Disintegrating Tablets PO. Medication Ordered: Zofran ODT PO 4 mg (NOW).
== END 2017-04-23 17:35 | disposition home or self-care (01) ==
LOC: ED SRH 16:22
DX: R51 Headache (principal); R11.0 Nausea; H53.149 Visual discomfort, unspecified; I10 Essential (primary) hypertension; E11.9 Type 2 diabetes mellitus without complications; E78.00 Pure hypercholesterolemia, unspecified; Z86.73 Personal history of transient ischemic attack (TIA), and cerebral infarction without residual deficits; Z72.0 Tobacco use; Z79.4 Long term (current) use of insulin; Z79.82 Long term (current) use of aspirin